=== PATIENT | male | born 1925 | race Caucasian/White ===

== ENCOUNTER → 2017-03-15 | Outpatient (CLI) | payer MEDICARE, OTHER ==
[~2017-03-15] MED LIST: ASPI-515 PO; ASPI-621 PO; ATEN-104 PO; ATEN50TA41 PO; ATOR80TA PO; ATOR80TA75 PO; NIAC500T PO; NICA30CA PO; TICA90TA PO
== END | disposition home or self-care (01) ==
LOC: CVU 09:52
PROVIDERS: ATTEND Internal Medicine Cardiovascular Disease
DX: I65.23 Occlusion and stenosis of bilateral carotid arteries (principal); Z85.51 Personal history of malignant neoplasm of bladder; Z72.0 Tobacco use
CPT/HCPCS: 93880